=== PATIENT | male | born 1980 | race American Indian/Alaskan Native ===

== ENCOUNTER 2017-12-16 21:55 | Emergency (ER) | payer SELFPAY ==
[2017-12-16 23:07] VITALS: BP 141/97
--- NOTE | 2017-12-16 23:28 | XRay Report ---
FINAL REPORT EXAM: XR CHEST ROUTINE 2V HISTORY: Cough recently dx bronchitis COMPARISON: None available. FINDINGS:: Frontal and lateral views of the chest obtained. Cardiac silhouette is within normal limits. No focal consolidation or effusion. No pneumothorax. Visualized bony thorax is grossly intact. Hyperinflation of the lungs. Mild pectus excavatum deformity. IMPRESSION:: No focal consolidation. Hyperinflation of the lungs.
[2017-12-17] MEDS ORDERED: DELTASONE PO ONE (06:40)
[2017-12-17] MEDS ORDERED: PEPCID PO ONE (06:40)
--- NOTE | 2017-12-17 06:40 | Emergency Department Report ---
HPI - General Chief Complaint: Allergic Reaction Time Seen by Provider: 12/17/17 06:38 - HPI HPI: Patient here report that he has allergic reaction to peanuts and he ate some macadamia nuts at 7 AM and today he started itching all over. He said he specifically allergic to peanut butter. He said he is taken a total of 4 Benadryl tablets [id number] throughout the day. He said that inserts not swollen but stated that his throat was feeling itchy prior to taking the Benadryl but notes better. Denies any cough and or wheezing, chest pain or shortness of breath. He is complaining of sinus pressure, dry cough itchy eyes and congestion that started about a week ago. Denies any nausea or vomiting. Denies any swelling in his neck. Pain is 0 out of 10. Denies any swelling of tongue or lips. ED Past Medical Hx - Past Medical History Previous Medical History?: No - Surgical History Past Surgical History?: Yes Additional Surgical History: Hernia surgery - Family History Family history: no significant - Social History Smoking Status: Current Every Day Smoker Substance Use Type: None - Medications Home Medications: Home Medications Medication Instructions Recorded Confirmed Last Taken Type Cetirizine HCl [ZyrTEC] 10 mg PO QAM 14 Days #14 tab.rapdis 12/17/17 Unknown Rx Fluticasone [Flonase] 1 spray NS QDAY 14 Days #141 bottle 12/17/17 Unknown Rx hydrOXYzine HCL [Atarax] 25 mg PO Q6HR PRN #12 tablet 12/17/17 Unknown Rx methylPREDNISolone [Medrol Dose 4 mg PO QAM 6 Days #1 pack 12/17/17 Unknown Rx Matthew] ED Review of Systems ROS: Stated complaint: ALLERGIC REACTION,LEFT FINGER PAIN Other details as noted in HPI Comment: All other systems reviewed and negative Constitutional: no symptoms reported Eyes: denies: eye pain, eye discharge, vision change ENT: congestion. denies: ear pain, throat pain, dental pain, epistaxis Respiratory: cough (dry cough). denies: orthopnea, shortness of breath, SOB with exertion, SOB at rest, stridor, wheezing Cardiovascular: denies: chest pain, palpitations, dyspnea on exertion, edema, syncope, paroxysmal nocturnal dyspnea Gastrointestinal: denies: abdominal pain, nausea, vomiting, diarrhea, constipation, hematemesis, hematochezia Genitourinary: denies: hematuria Skin: pruritus. denies: rash Neurological: denies: headache, abnormal gait, vertigo Physical Exam - Physical Exam Vital Signs: Vital Signs 12/16/17 22:59 Temperature 98.4 F Pulse Rate 73 Respiratory 20 Rate Blood Pressure 141/97 O2 Sat by Pulse 100 Oximetry General: This is a 37-year-old male well-nourished well-developed in no acute distress and nontoxic in appearance. Physical Exam: Head: Normocephalic atraumatic Ears:BIateral TM congested without erythema and loss of bony landmarks. Mychal EAC with normal exam. No mastoid bone tenderness. Mouth: Moist, no pharyngeal erythema or exudate . No tonsillar erythema or exudate. UVULA midline and oral airways patent. No peritonsillar abscess. Tongue and lips are normal. Neck: Nontender to palpate, supple, normal range of motion. No adenopathy. No c- spine tenderness. No tracheal deviation or swelling of the neck. Nose: Bilateral nasal mucosa congested with clear drainage. Maxillary and frontal sinuses non-tender to palpate. Eyes: Bilateral Sclerae and conjunctiva without injection. Bilateral pupils equal and reactive to light. Bilateral lids are normal. Normal accommodation.BEOMI Lungs: Clear to auscultate bilaterally, no rhonchi wheezes or rales. Normal work of breathing and no chest wall tenderness. Dry cough noted CV: S1, S2. Regular rate and rhythm negative murmur. Capillary refill is less than 3 seconds Skin: Clean dry and intact, no rashes or lesions Psych: Normal mood and behavior ED Course Vital Signs 12/16/17 22:59 Temperature 98.4 F Pulse Rate 73 Respiratory 20 Rate Blood Pressure 141/97 O2 Sat by Pulse 100 Oximetry - Reevaluation(s) Reevaluation #1: 12/17/17 06:47 Given Deltasone 60 mg by mouth and Pepcid 40 mg when necessary emergency room. He is not very taken for Benadryl and his symptoms have been resolved but he is also complaining of sinus problems and was found to have sinus inflammation ongoing for 1 week. ED Medical Decision Making - Radiology Data Radiology results: report reviewed Chest reveals no consolidation. He does have hyperinflated lungs and patient is a smoker. Denies any history of COPD - Medical Decision Making ED course: An air report that he has peanut butter allergy any some macadamia nuts and over the course of almost 24 hours he developed itching all over and he is taking for Benadryl over the course of the day. He denies any respiratory symptoms due to allergies but he does report dry cough, nasal congestion and runny nose that has been ongoing for 1 week. Patient allergy to nuts is stable on with itching but he does have sinus inflammation. He was given Deltasone 60 mg by mouth and Pepcid 40 mg by mouth. I discussed patient diagnosis and treatment plan and that he is allergic not only did peanut butter brought to possible all nuts and she should not take the chance to eat any other source of nuts. He voiced understanding. Patient discharged home in stable condition to follow up at [facility] as he doesn't have a primary care physician. I discussed with him F symptoms of allergic reaction such as increased dizziness, shortness of breath, difficulty breathing, was closed in the throat, swollen, and lips, wheezing and stridor please return to emergency room. Patient discharged home in stable condition with prescription for Medrol Dosepak, Flonase, Zyrtec and Atarax. I also discussed with him his chest x-ray results and told him he needs to follow-up with outside medical regard in hyperinflated lungs and that he needs to be tested for COPD. His pulse ox is 100%. Critical care attestation.: If time is entered above; I have spent that time in minutes in the direct care of this critically ill patient, excluding procedure time. ED Disposition Clinical Impression: Pruritic condition, Food allergy, peanut, Nicotine abuse, Hyperinflation of lungs Minor allergic reaction Qualifiers: Encounter type: initial encounter Qualified Code(s): T78.40XA - Allergy, unspecified, initial encounter Acute inflammation of sinus Qualifiers: Sinusitis location: unspecified location Recurrence: not specified as recurrent Qualified Code(s): J01.90 - Acute sinusitis, unspecified Disposition: DC-01 TO HOME OR SELFCARE Is pt being admited?: No Does the pt Need Aspirin: No Condition: Stable Instructions: Food Allergy (ED), Sinusitis (ED), How to Stop Smoking (ED) Additional Instructions: Please follow-up with your primary care physician and if you do not have one follow-up with [facility] tomorrow for evaluation of findings on chest x-ray for hyper inflated lungs which could be related to smoking Please stop smoking Take medication as prescribed If allergy symptoms worsen, please return to the emergency room Avoid eating any thing with nuts or any nuts. Prescriptions: Cetirizine HCl [ZyrTEC] 10 mg PO QAM 14 Days #14 tab.rapdis Fluticasone [Flonase] 1 spray NS QDAY 14 Days #141 bottle hydrOXYzine HCL [Atarax] 25 mg PO Q6HR PRN #12 tablet PRN Reason: Itching methylPREDNISolone [Medrol Dose Matthew] 4 mg PO QAM 6 Days #1 pack Referrals: [facility] [Outside] - 12/18/17 Forms: Work/School Release Form(ED)
== END 2017-12-17 07:07 | disposition home or self-care (01) ==
LOC: ED 21:55
DX: T78.1XXA Other adverse food reactions, not elsewhere classified, initial encounter (principal); L29.9 Pruritus, unspecified; J01.90 Acute sinusitis, unspecified; R91.8 Other nonspecific abnormal finding of lung field; F17.200 Nicotine dependence, unspecified, uncomplicated; Z91.010 Allergy to peanuts; Z91.018 Allergy to other foods; X58.XXXA Exposure to other specified factors, initial encounter
CPT/HCPCS: 71046; 99283; J7512

== ENCOUNTER 2018-01-12 23:46 | Emergency (ER) | payer OTHER ==
[2018-01-13] MEDS ORDERED: ASPIRIN PO ONE (00:56)
--- NOTE | 2018-01-13 01:23 | XRay Report ---
FINAL REPORT PROCEDURE: XR CHEST ROUTINE 2V TECHNIQUE: PA and lateral chest radiographs were obtained. CPT 44387 HISTORY: SOB COMPARISON: No prior studies are available for comparison. FINDINGS: Heart: Normal. Mediastinum/Vessels: Normal. Lungs/Pleural space: Normal. Bony thorax: No acute osseous abnormality. Other: IMPRESSION: Normal examination.
[2018-01-13 01:57] LABS: Basophils # (Auto) 0.1 K/mm3 (0.0-0.1); Basophils % (Auto) 1.2 % (0.0-1.8); Eosinophils # (Auto) 0.5 K/mm3 (0.0-0.4); Eosinophils % (Auto) 4.9 % (0.0-4.3); Hematocrit 46.6 % (35.5-45.6); Hemoglobin 15.3 gm/dl (11.8-15.2); Lymphocytes # (Auto) 3.9 K/mm3 (1.2-5.4); Lymphocytes % (Auto) 36.4 % (13.4-35.0); Mean Corpuscular HGB Conc 33 % (32-34); Mean Corpuscular Hemoglobin 29 pg (28-32); Mean Corpuscular Volume 90 fl (84-94); Monocytes # (Auto) 0.9 K/mm3 (0.0-0.8); Monocytes % (Auto) 8.4 % (0.0-7.3); Platelet Count 216 K/mm3 (140-440); Red Blood Count 5.21 M/mm3 (3.65-5.03); Red Cell Distribution Width 14.8 % (13.2-15.2)
[2018-01-13 02:30] LABS: BUN/Creatinine Ratio 18; Blood Urea Nitrogen 16 mg/dL (9-20); Calcium 9.6 mg/dL (8.4-10.2); Hemolysis Index 40
[2018-01-13 03:11] LABS: Bilirubin,Urine NEG (Negative); Blood,Urine NEG (Negative); Color,Urine Yellow (Yellow); Mucus,Urine FEW /HPF; Protein,Urine <15 mg/dL mg/dL (Negative); Urobilinogen,Urine < 2.0 mg/dL (<2.0)
[2018-01-13] MEDS ORDERED: MUCINEX ER PO ONE (07:10)
[2018-01-13] MEDS ORDERED: TESSALON PERLES PO ONE (07:10)
[2018-01-13] MEDS ORDERED: TORADOL IM ONE (07:10)
--- NOTE | 2018-01-13 09:08 | Emergency Department Report ---
HPI - General Chief Complaint: Chest Pain Time Seen by Provider: 01/13/18 06:16 - HPI HPI: The patient is a 37-year-old male who presents for evaluation of chest pain. The patient reports chest pain with coughing, aching in quality, moderate in severity, present for the past one month, radiating to the back. He at times has experienced dyspnea with severe coughing spells, but has no dyspnea whatsoever currently. The patient denies fever, neck pain, parasthesias, hemoptysis, palpitations, dizziness, syncope, unilateral leg swelling, calf muscle pain. Patient also denies cocaine or other stimulant use, history of DVT or PE, recent immobilization, or history of cancer. ED Past Medical Hx - Past Medical History Previous Medical History?: No - Surgical History Past Surgical History?: Yes Additional Surgical History: Hernia surgery - Social History Smoking Status: Current Every Day Smoker Substance Use Type: Alcohol, Marijuana - Medications Home Medications: Home Medications Medication Instructions Recorded Confirmed Last Taken Type Cetirizine HCl [ZyrTEC] 10 mg PO QAM 14 Days #14 tab.rapdis 12/17/17 Unknown Rx Fluticasone [Flonase] 1 spray NS QDAY 14 Days #141 bottle 12/17/17 Unknown Rx hydrOXYzine HCL [Atarax] 25 mg PO Q6HR PRN #12 tablet 12/17/17 Unknown Rx methylPREDNISolone [Medrol Dose 4 mg PO QAM 6 Days #1 pack 12/17/17 Unknown Rx Adamaris] ALBUTEROL Inhaler [ProAir HFA 2 puff IH QID PRN #1 inhalation 01/13/18 Unknown Rx Inhaler] Azithromycin [Zithromax Z-ADAMARIS] 250 mg PO QDAY #6 tablet 01/13/18 Unknown Rx Benzonatate [Tessalon Perles] 100 mg PO Q8HR #20 capsule 01/13/18 Unknown Rx Ibuprofen [Motrin] 800 mg PO Q8HR PRN #12 tablet 01/13/18 Unknown Rx ED Review of Systems ROS: Stated complaint: CHEST PAIN,SOB Other details as noted in HPI Constitutional: denies: fever ENT: denies: throat or neck pain Respiratory: reports cough, shortness of breath Cardiovascular: reports: chest pain Endocrine: denies unexplained weight loss or gain Gastrointestinal: denies: abdominal pain, nausea Genitourinary: denies: dysuria Musculoskeletal: denies: leg swelling Skin: denies: rash Neurological: denies: headache Hematological/Lymphatic: denies: easy bleeding or easy bruising Psych: denies sadness or hopelessness Physical Exam - Physical Exam Vital Signs: Vital Signs 01/12/18 01/13/18 01/13/18 23:59 05:12 05:30 Temperature 98.2 F 98.1 F Pulse Rate 72 70 69 Respiratory 16 21 25 H Rate Blood Pressure 132/94 142/93 Blood Pressure 147/89 [Left] O2 Sat by Pulse 100 100 100 Oximetry 01/13/18 01/13/18 06:00 07:00 Temperature Pulse Rate 90 Respiratory 22 14 Rate Blood Pressure 148/93 138/102 Blood Pressure [Left] O2 Sat by Pulse 100 100 Oximetry Physical Exam: General: well-nourished, well-developed, no acute distress Head: Normocephalic, atraumatic Eyes: normal sclera ENT: Mucous membranes are pale and dry Neck: trachea midline, neck supple, No neck stiffness, no cervical adenopathy Respiratory: Breath sounds equal bilaterally, no wheezing, rales, or rhonchi Cardio: S1 and S2 present, no murmurs, rubs, gallops, capillary refill is delayed Abdomen: Normoactive bowel sounds, soft abdomen, no rigidity, no guarding or rebound tenderness Chest WALL/Back: No tenderness to palpation of the chest wall, no CVA tenderness with percussion, chest pain is reproduced with movement of the arms bilaterally Musc: No pitting edema Skin: No rash Neuro: no facial drooping, normal speech Psych: Normal affect ED Course Vital Signs 01/12/18 01/13/18 01/13/18 23:59 05:12 05:30 Temperature 98.2 F 98.1 F Pulse Rate 72 70 69 Respiratory 16 21 25 H Rate Blood Pressure 132/94 142/93 Blood Pressure 147/89 [Left] O2 Sat by Pulse 100 100 100 Oximetry 01/13/18 01/13/18 06:00 07:00 Temperature Pulse Rate 90 Respiratory 22 14 Rate Blood Pressure 148/93 138/102 Blood Pressure [Left] O2 Sat by Pulse 100 100 Oximetry ED Medical Decision Making - Lab Data Result diagrams: 01/13/18 01:19 01/13/18 01:19 - Medical Decision Making The patient was seen and examined by myself. The patient is placed on a color television console monitor and continuous pulse ox. On initial evaluation, the patient was found to be in no distress. EKG was negative for findings suggestive of acute cardiac infarct. Labs and imaging are obtained. Chest x-ray is negative for pneumothorax, focal consolidation, pulmonary vascular congestion, pleural effusion, or other obvious acute cardiopulmonary disease process. Lab results were non-concerning including levels of troponin, WBC, hemoglobin, hematocrit, electrolytes, renal function. The patient was reevaluated and reported that their symptoms were markedly improved. As the patient has a ANAM risk score less than 2, and a well's score less than 2, the patient is at low risk of ACS or pulmonary emboli etiology of their symptoms. The patient is stable for discharge with outpatient follow-up. The patient is given follow-up and return instructions. The patient expressed understanding and agreed with the plan. The patient is discharged in stable condition. Critical care attestation.: If time is entered above; I have spent that time in minutes in the direct care of this critically ill patient, excluding procedure time. ED Disposition Clinical Impression: Acute chest pain, Dehydration, mild Acute bronchitis Qualifiers: Bronchitis organism: unspecified organism Qualified Code(s): J20.9 - Acute bronchitis, unspecified Disposition: DC-01 TO HOME OR SELFCARE Is pt being admited?: No Does the pt Need Aspirin: No Condition: Stable Instructions: Chest Pain (ED), Acute Bronchitis (ED) Referrals: PRIMARY CARE, [Primary Care Provider] - 3-5 Days Forms: Work/School Release Form(ED) Time of Disposition: 06:50
[2018-01-13 09:36] VITALS: BP 141/105
== END 2018-01-13 09:37 | disposition home or self-care (01) ==
LOC: ED 23:46
DX: J20.9 Acute bronchitis, unspecified (principal); E86.0 Dehydration; R07.9 Chest pain, unspecified; F17.200 Nicotine dependence, unspecified, uncomplicated; F12.10 Cannabis abuse, uncomplicated
CPT/HCPCS: 36415; 71046; 80048; 81001; 84484; 85025; 93005; 93010

== ENCOUNTER 2020-12-19 15:22 | Emergency (ER) | payer SELFPAY | END 2020-12-19 15:45 | disposition left against medical advice (07) | LOC: ED 15:22 | DX: Z00.8 Encounter for other general examination (principal); Z53.21 Procedure and treatment not carried out due to patient leaving prior to being seen by health care provider ==